=== PATIENT | male | born 1980 | race Caucasian/White ===

== ENCOUNTER 2017-07-18 11:01 | Emergency (ER) | payer OTHER ==
[2017-07-18] MEDS: LIDOCAINE 1% (MDV) 10 ML INJ INJ (11:28)
[2017-07-18] MEDS: DIPHTH/TET/ACEL PERTUSS (ADULT) 0.5 ML VIAL IM* (11:59)
[2017-07-18] MEDS: HYDROCODONE/APAP (5/325) TAB PO (12:11)
[2017-07-18] MEDS: ONDANSETRON (ODT) 4 MG TAB ODT (12:12)
== END 2017-07-18 12:45 | disposition home or self-care (01) ==
LOC: FTE 11:01
DX: S81.812A Laceration without foreign body, left lower leg, initial encounter (principal); W11.XXXA Fall on and from ladder, initial encounter; Y92.9 Unspecified place or not applicable; Z23 Encounter for immunization
CPT/HCPCS: 12001; 90471; 90715; 99283-25